=== PATIENT | female | born 1935 | race Caucasian/White ===

== ENCOUNTER 2018-09-15 20:14 | Observation (INO) | payer MEDICARE, BC ==
[~2018-09-15] VITALS: Ht 160 cm; Wt 57.2 kg
[2018-09-15 11:30] VITALS: BP 153/75
--- NOTE | 2018-09-15 20:27 | NUR ---
Pt taken to CT from triage. Daughter, Wes [phone] (cell) and Destinee call ([phone]) at bedside.
--- NOTE | 2018-09-15 20:30 | NUR ---
barbara stroke nurse at bedside. 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
--- NOTE | 2018-09-15 20:30 | NUR ---
STROKE NURSE, IRMA, REQUESTING TO POSTPONE CXR AND EKG TO PRIORITIZE STROKE EVAL AND TELE NEURO.
[2018-09-15] MEDS ORDERED: LEVE750T (20:51)
[2018-09-15] MEDS ORDERED: ROSU40TA21 (20:51)
[2018-09-15 20:55] LABS: BASOPHILS % (AUTO) 0.3 % (0-1); EOSINOPHILS % (AUTO) 0.2 % (0-6); HEMATOCRIT 42.1 % (35.0-45.0); HEMOGLOBIN 14.5 g/dl (12.0-16.0); LYMPHOCYTES # (AUTO) 1.5 X10'3 (1.1-4.8); LYMPHOCYTES % (AUTO) 11.6 % (21-51); MEAN CORPUSCULAR HEMOGLOBIN 31.3 PG (27.0-31.0); MEAN CORPUSCULAR HGB CONC 34.4 g/dL (33.0-36.5); MEAN CORPUSCULAR VOLUME 91.1 FL (78-98); MEAN PLATELET VOLUME 8.7 FL (7.4-10.4); MONOCYTES # (AUTO) 1.2 X10'3 (0-0.9); MONOCYTES % (AUTO) 8.7 % (2-12); NEUTROPHILS # (AUTO) 10.5 X10'3 (1.8-7.7); NEUTROPHILS % (AUTO) 79.2 % (42-75); PLATELET COUNT 167 X10'3 (140-440); RED BLOOD COUNT 4.62 X10'6 (4.20-5.60); RED CELL DISTRIBUTION WIDTH 14.1 % (11.5-14.5); WHITE BLOOD COUNT 13.3 X10'3 (4.5-11.0)
[2018-09-15] MEDS ORDERED: VITC500T PO (20:55)
[2018-09-15] MEDS ORDERED: CYAN-19 PO (20:55)
[2018-09-15] MEDS ORDERED: CHRO400T10 (20:55)
[2018-09-15] MEDS ORDERED: CHOL10002 PO (20:55)
[2018-09-15] MEDS ORDERED: FOLI0.4T2 PO (20:55)
[2018-09-15] MEDS ORDERED: PYRI50TA13 PO (20:55)
[2018-09-15] MEDS ORDERED: IODI150T (20:55)
--- NOTE | 2018-09-15 20:59 | NUR ---
soc tele neuro consult in progress now.
[2018-09-15 21:05] LABS: ALANINE AMINOTRANSFERASE 26 U/L (12-78); ALBUMIN 3.6 G/DL (3.4-5.0); ALBUMIN/GLOBULIN RATIO 0.9 (1.1-1.5); ALKALINE PHOSPHATASE 91 IU/L (46-116); ANION GAP 10 (8-16); ASPARTATE AMINO TRANSFERASE 21 U/L (10-37); BILIRUBIN,TOTAL 0.4 MG/DL (0.1-1.0); BLOOD UREA NITROGEN 26 MG/DL (7-18); BUN/CREATININE RATIO 22.4 (6.6-38.0); CALCIUM 8.9 MG/DL (8.5-10.1); CHLORIDE 102 MMOL/L (99-107); CREATININE 1.16 MG/DL (0.40-0.90); GLUCOSE 156 MG/DL (70-104); POTASSIUM 3.9 MMOL/L (3.5-5.1); SODIUM 137 MMOL/L (135-145); TOTAL PROTEIN 7.4 G/DL (6.4-8.2); eGFR 45 ML/MIN
[2018-09-15 21:08] LABS: TROPONIN I < 0.04 NG/ML (0.0-0.05)
[2018-09-15 21:10] LABS: PARTIAL THROMBOPLASTIN TIME 27 SECONDS (22-32)
[2018-09-15] MEDS ORDERED: normal saline 1000ml 1,000 ML IV ONE (21:15)
[2018-09-15] MEDS ORDERED: levetiracetam inj 1,000 MG in normal saline 100ml IV soln 90 ML IV ONE (21:20)
--- NOTE | 2018-09-15 22:05 | NUR ---
STROKE RN GAVE ME REPORT AND IS NOT GONE. SHE REPORTS THE TELE NEURO MD DOES NOT THINK THIS IS A STROKE AND IS A SIMILAR EVENT HER PAST SEIZURE, THE DAUGHTER SUSPECTED. FAMILY REMAINS AT BEDSIDE. PT TO BE ADMITTED AWAITING HOSPITALIST. NURSING SAS ADMINISTRATOR IN TO CHECK ON PT AND FAMILY. CURRENT VSS. KEPPRA IVPB INFUSING AND 1 LITER NS BOLUS INFUSING.
[2018-09-15] MEDS ORDERED: potassium Cl 20 mEq SR tablet PO PRN (22:20)
[2018-09-15] MEDS ORDERED: ondansetron/PF 4mg/2ml inj IV PRN (22:20)
[2018-09-15] MEDS ORDERED: magnesium Cl slow-release 64mg tablet PO PRN (22:20)
[2018-09-15] MEDS ORDERED: acetaminophen 325mg tablet PO PRN (22:20)
[2018-09-15] MEDS ORDERED: docusate sod 100mg capsule PO PRN (22:20)
[2018-09-15] MEDS ORDERED: magnesium 4gm in 100ml NS 100 ML IV PRN (22:20)
[2018-09-15] MEDS ORDERED: potassium Cl 40MEQ/NS 500ml 500 ML IV PRN ×2 (22:20)
[2018-09-15] MEDS ORDERED: magnesium 2GM in 50ml NS 50 ML IV PRN (22:20)
[2018-09-15] MEDS ORDERED: mag hydrox/Alum hydrox/simeth 30ml oral suspension PO PRN (22:20)
--- NOTE | 2018-09-15 22:42 | NUR ---
dr. sood at bedside for admission. family remains at bedside
[2018-09-15 22:50] LABS: CLARITY,URINE CLOUDY (Clear); COLOR,URINE YELLOW (Yellow); GLUCOSE, URINE NEGATIVE (Neg); KETONES,URINE NEGATIVE (Neg); LEUKOCYTE ESTERASE ,URINE LARGE (Neg); NITRITES, URINE POSITIVE (Neg); OCCULT BLOOD,URINE MODERATE (Neg); PROTEIN,URINE 100 mg/dl (Neg); UROBILINOGEN,URINE 0.2 E.U/dL (0.2-1.0)
[2018-09-15 23:01] LABS: UA COLLECTION TYPE CLN CATCH MIDSTREAM
[2018-09-15 23:02] LABS: WBC,URINE TNTC /HPF (0-4)
[2018-09-15 23:03] LABS: BACTERIA,URINE FEW /HPF (Neg); RBC,URINE 0-2 /HPF (0-2); SQUAMOUS EPITHELIAL CELL,UR FEW /LPF (FEW)
[2018-09-15 23:30] VITALS: BP 153/75
[2018-09-16] MEDS: CefTRIAXone/D5W-Rocephin 1gm 50 ML IV SCH ×2 (00:10→08:44)
[2018-09-16 02:00] VITALS: BP 130/59
[2018-09-16 04:42] LABS: BASOPHILS % (AUTO) 0.3 % (0-1); EOSINOPHILS % (AUTO) 0.5 % (0-6); HEMATOCRIT 39.4 % (35.0-45.0); HEMOGLOBIN 13.3 g/dl (12.0-16.0); LYMPHOCYTES # (AUTO) 2.3 X10'3 (1.1-4.8); LYMPHOCYTES % (AUTO) 24.9 % (21-51); MEAN CORPUSCULAR HEMOGLOBIN 30.7 PG (27.0-31.0); MEAN CORPUSCULAR HGB CONC 33.8 g/dL (33.0-36.5); MEAN CORPUSCULAR VOLUME 90.7 FL (78-98); MEAN PLATELET VOLUME 8.8 FL (7.4-10.4); NEUTROPHILS # (AUTO) 5.8 X10'3 (1.8-7.7); NEUTROPHILS % (AUTO) 63.3 % (42-75); PLATELET COUNT 142 X10'3 (140-440); RED BLOOD COUNT 4.34 X10'6 (4.20-5.60); WHITE BLOOD COUNT 9.1 X10'3 (4.5-11.0)
[2018-09-16 04:58] LABS: ALANINE AMINOTRANSFERASE 21 U/L (12-78); ALBUMIN/GLOBULIN RATIO 0.9 (1.1-1.5); ALKALINE PHOSPHATASE 69 IU/L (46-116); ANION GAP 6 (8-16); ASPARTATE AMINO TRANSFERASE 15 U/L (10-37); BILIRUBIN,TOTAL 0.3 MG/DL (0.1-1.0); BLOOD UREA NITROGEN 18 MG/DL (7-18); BUN/CREATININE RATIO 22.5 (6.6-38.0); CALCIUM 8.5 MG/DL (8.5-10.1); CHLORIDE 110 MMOL/L (99-107); CHOL/HDL RATIO 2.4 (0.00-4.99); CHOLESTEROL 139 MG/DL (0-200); GLUCOSE 101 MG/DL (70-104); HDL CHOLESTEROL 57 MG/DL (35-60); LDL CHOLESTEROL 69 MG/DL (50-100); MAGNESIUM 2.1 MG/DL (1.5-2.4); POTASSIUM 3.4 MMOL/L (3.5-5.1); SODIUM 142 MMOL/L (135-145); TOTAL CARBON DIOXIDE 25.8 MMOL/L (24-32); TOTAL PROTEIN 6.4 G/DL (6.4-8.2); TRIGLYCERIDES 97 MG/DL (20-135); eGFR 69 ML/MIN
--- NOTE | 2018-09-16 05:26 | NUR ---
Patient in room ORTHO 4009B. I have received report from JOVANNA Salazar and had the opportunity to ask questions and assume patient care. Addendum: 09/16/18 at 0530 by Rica Hill RN note: report was received on 2090 on 09/15/2018
[2018-09-16 06:00] VITALS: BP 133/67
--- NOTE | 2018-09-16 06:00 | NUR ---
Patient in room ORTHO 4009. I have received report from Rica NUGENT and had the opportunity to ask questions and assume patient care.
--- NOTE | 2018-09-16 06:07 | NUR ---
Problems reprioritized. Patient report given, questions answered & plan of care reviewed with JOVANNA Barclay.
[2018-09-16] MEDS ORDERED: enoxaparin 40mg/0.4ml syringe SQ SCH (08:00)
[2018-09-16] MEDS ORDERED: atorvastatin 20mg tablet PO SCH (08:00)
[2018-09-16] MEDS ORDERED: ascorbic acid 500mg tablet PO SCH (08:00)
[2018-09-16] MEDS ORDERED: K and/or MAG REPLACEMENT MC SCH (08:00)
[2018-09-16] MEDS ORDERED: levetiracetam 250mg tablet PO SCH (08:00)
[2018-09-16] MEDS: potassium Cl 20 mEq SR tablet PO PRN ×2 (08:38→12:14)
[2018-09-16 10:00] VITALS: BP 169/72
[2018-09-16] MEDS ORDERED: CIPR250T4 PO (10:54)
[2018-09-16] MEDS ORDERED: LEVE250T PO (10:54)
--- NOTE | 2018-09-16 13:25 | NUR ---
Patient stable for for discharge home today. All D/C instructions given to patient and daughter and all question answered. IV rebecca. Delio Bedside Delivered medications.
== END 2018-09-16 12:40 | disposition home or self-care (01) ==
LOC: ER 20:15 → ORTHO 4S 23:53 → CMPBEDREQ 23:56
PROVIDERS: ADMIT Family Medicine; ATTEND Internal Medicine
DX: G83.84 Todd's paralysis (postepileptic) (principal); R41.4 Neurologic neglect syndrome; N28.9 Disorder of kidney and ureter, unspecified; N39.0 Urinary tract infection, site not specified; E78.5 Hyperlipidemia, unspecified; E78.00 Pure hypercholesterolemia, unspecified; Z86.73 Personal history of transient ischemic attack (TIA), and cerebral infarction without residual deficits; Z86.69 Personal history of other diseases of the nervous system and sense organs
CPT/HCPCS: 36415; 70450; 71045; 80053; 80061; 81001; 82948; 83735; 84484; 85025; 85610; 85730; 87070; 87077; 87088; 87186; 93005; 96365; 96372; 97116; 97161; 97535; 99284; G0378; J0696; J1953; J1650; J7030

== ENCOUNTER 2025-02-24 04:43 | Emergency (ER) | payer MEDICARE, BC ==
[~2025-02-24] VITALS: Ht 160 cm; Wt 64.4 kg
[~2025-02-24 04:43] MED LIST: CHOL10002 PO; CHRO400T10; CYAN-104 PO; FOLI0.4T6 PO; IODI150T; LEVE250T PO; PYRI-3 PO; ROSU40TA89; VITC500T PO
--- NOTE | 2025-02-24 04:49 | Physician Documentation ---
History of Present Illness General Stated Complaint: SEE CHIEF COMPLAINT Kristin RUSH Time Seen by MD: 04:47 Primary Medical Doctor: [facility]; Herve FLORES PCP History of Present Illness Initial Comments Patient is a an 89-year-old female states that she was walking a proximally 30 minutes prior to arrival in the emergency room with her walker and she fell she states she had difficulty with a walker and it ended up on top of her. Patient states she hit the left side of her body she is complaining some slight left chest pain in the left hip pain. Patient was able to ambulate at the scene the patient is complaining of mild pain she states it is a 1/10. In the left hip. She does not require or want anything for pain at this time. Patient denies a head strike she denies any neck pain. The patient is not on any blood thinners Medication Reconciliation Allergies: Coded Allergies: Bacitracin Zinc (Verified Allergy, Unknown, 08/24/15) bacitracin (Verified Allergy, Unknown, 08/24/15) gramicidin D (Verified Allergy, Unknown, 08/24/15) neomycin sulfate (Verified Allergy, Unknown, 08/24/15) phenytoin sodium (Verified Allergy, Unknown, 08/24/15) polymyxin B (Verified Allergy, Unknown, 08/24/15) polymyxin B sulfate (Verified Allergy, Unknown, 08/24/15) Scheduled Ascorbic Acid* (Vitamin C*), 1,000 MG PO BID, (Reported) Cholecalciferol (Vitamin D3) (Vitamin D3), Unknown Dose PO DAILY, (Reported) Cyanocobalamin (Vitamin B-12), Unknown Dose PO DAILY, (Reported) Folic Acid* (Folic Acid*), Unknown Dose PO DAILY, (Reported) Levetiracetam (Levetiracetam), 1,000 MG PO BID Pyridoxine Hcl (Vitamin B-6), Unknown Dose PO DAILY, (Reported) Rosuvastatin Calcium (Rosuvastatin Calcium), 1 TAB DAILY, (Reported) Miscellaneous Medications Chromium Amino Acid Chelate (Chromium), Unknown Dose, (Reported) Iodine (Kelp), Unknown Dose, (Reported) Past Medical History Past Medical History: CVA/TIA/Stroke, Seizures, High Cholesterol, Eczema Past Surgical History: abdominal surgery, brain surgery Smoking: Non-Smoker Alcohol Use: None Drug Use: none Review of Systems All Other Systems at this time: Reviewed and Negative Physical Exam Physical Exam Physical Exam VITALS: Reviewed and as above. GENERAL: Alert, no apparent distress. HEENT: Normocephalic, atraumatic, PERRL, EOMI, dry mucosa, no erythema RESPIRATORY: Lungs clear, normal breath sounds, no respiratory distress. CHEST: No accessory muscle use, no retractions slight light left-sided chest wall tenderness CV: Regular rate, rhythm, no edema, 3/6 systolic murmur best heard over the left upper sternal border, No: JVD GI: Soft, non-tender, bowels sounds present, no rebound, guarding, or rigidity BACK: No CVA tenderness, or swelling MUSCULOSKELETAL: No deformities, no edema slight pain over the left hip full range of motion without pain of the left hip SKIN: Warm and dry, no rash NEURO: Oriented x4, No motor or sensory deficit PSYCH: Normal mood and affect, no agitation Progress Results/Orders Results/Orders Orders - CORRY COULTER MD Hip Unilateral 2 Views (02/24/25 ) Uni Ribs With Pa Chest (02/24/25 04:50) Completed Orders - CORRY COULTER MD Hip Unilateral 2 Views (02/24/25 ) Uni Ribs With Pa Chest (02/24/25 04:50) Vital Signs 02/24/25 02/24/25 04:58 05:58 Temp 97.6 97.6 Pulse 71 69 Resp 18 18 B/P (MAP) 124/68 132/75 Pulse Ox 97 99 O2 Flow Rate 0 EKG/XRAY/CT/US/VASC/MRI Bone/Soft Tissue X-Ray (Spine) : Additional Comment Patient: BRIAN PEREZ Medical Record: [id number] : 1935, Age: 89 Sex: Female Location: ER Patient Status: REG ER Service Date/Time: 02/24/25/ Ordering Physician: CORRY COULTER MD Exam: HIP UNILATERAL 2 EWS PROCEDURE: Left hip radiographs. INDICATION: fall LT HIP PAIN TECHNIQUE: Frontal view of the pelvis, frontal and lateral views of the left hip were obtained. COMPARISON: None FINDINGS: There is no evidence of acute fracture or dislocation. There is chronic appearing left superior and inferior pubic ramus fractures. No dislocation. Vascular calcifications noted IMPRESSION: 1. No acute osseous abnormality. 2. Chronic appearing left superior and inferior pubic ramus fractures. Electronically Signed by:NOLAN SCHMIDT MD Date & Time: 02/24/25525 Dictated by: NOLAN SCHMIDT MD Dictation date and time: 02/24/25525 Primary Care Provider: NO PRIMARY CARE PROVIDER cc: CORRY COULTER MD ~ Bone/Soft Tissue X-Ray (Ext.) : Additional Comment Patient: BRIAN PEREZ Medical Record: [id number] [facility] 1935, Age: 89 Sex: Female Location: ER Patient Status: [facility] ER Service Date/Time: 02/24/25449 Ordering Physician: CORRY COULTER MD Exam: UNI RIBS WITH PA CHEST FRONTAL CHEST AND left RIB RADIOGRAPHS HISTORY: fall LT RIB PAIN TECHNIQUE: Frontal radiographs of the chest and multiple oblique views of the left ribs were obtained. COMPARISON: None. FINDINGS: The trachea is midline. The cardiac silhouette and mediastinum are within normal limits. No pneumothorax, pleural effusions, or consolidations. No evidence of left rib fracture. There is a calcified mass in the left upper quadrant measuring 3.4 cm. Impression: 1. No evidence of left rib fracture. 2. No acute cardiopulmonary process. 3. Calcified mass in the left upper quadrant measuring 3.[address] of the abdomen pelvis may be obtained for further evaluation. Electronically Signed by:NOLAN SCHMIDT MD Date & Time: 02/24/25527 Dictated by: NOLAN SCHMIDT MD Dictation date and time: 02/24/25527 Primary Care Provider: NO PRIMARY CARE PROVIDER cc: CORRY COULTER MD ~ Medical Decision Making Additional information obtaine: old records Findings Patient with a ground level fall patient has a benign exam. The patient had some slight tenderness over her lower left hip and also some slight tenderness over the left chest wall plain film imaging of the hip did not demonstrate any acute pathology or fracture and the chest x-ray is unremarkable patient's lungs are clear she is nontoxic and otherwise well-appearing the patient's pulse oximetry was interpreted as normal all of her images were reviewed. The patient's hip demonstrated normal bony alignment no soft tissue swelling was appreciated no dislocation I interpreted the x-ray as being a normal x-ray I have also reviewed the radiologist's interpretation. The patient will be discharged Differential Diagnosis Hip fracture hip contusion Departure Time of Disposition: 05:45 Disposition: 01 HOME / SELF CARE / HOMELESS Impression: Primary Impression: Fall Qualified Codes: W19.XXXA - Unspecified fall, initial encounter Additional Impression: Hip pain Qualified Codes: M25.552 - Pain in left hip Discharge Instructions: Fall Prevention in the Home, Adult, [id number] Referrals: NO PRIMARY CARE PROVIDER (PCP) Signature Scribe Signature: No scribe Attestation: The note accurately reflects work and decisions made by me.Corry Coulter MD 02/25/25 04:55 CORRY COULTER MD Feb 24, 2025 04:49
--- NOTE | 2025-02-24 05:29 | RADIOLOGY REPORT ---
PROCEDURE: Left hip radiographs. INDICATION: fall LT HIP PAIN TECHNIQUE: Frontal view of the pelvis, frontal and lateral views of the left hip were obtained. COMPARISON: None FINDINGS: There is no evidence of acute fracture or dislocation. There is chronic appearing left superior and inferior pubic ramus fractures. No dislocation. Vascular calcifications noted IMPRESSION: 1. No acute osseous abnormality. 2. Chronic appearing left superior and inferior pubic ramus fractures.
--- NOTE | 2025-02-24 05:31 | RADIOLOGY REPORT ---
FRONTAL CHEST AND left RIB RADIOGRAPHS HISTORY: fall LT RIB PAIN TECHNIQUE: Frontal radiographs of the chest and multiple oblique views of the left ribs were obtained. COMPARISON: None. FINDINGS: The trachea is midline. The cardiac silhouette and mediastinum are within normal limits. No pneumothorax, pleural effusions, or consolidations. No evidence of left rib fracture. There is a calcified mass in the left upper quadrant measuring 3.4 cm. Impression: 1. No evidence of left rib fracture. 2. No acute cardiopulmonary process. 3. Calcified mass in the left upper quadrant measuring 3.[address] of the abdomen pelvis may be obtained for further evaluation.
[2025-02-24 05:58] VITALS: BP 132/75; PULSE 69; RESP 18; TEMP 97.6; O2SAT 99
== END 2025-02-24 06:09 | disposition home or self-care (01) ==
LOC: ER 04:43
DX: M25.552 Pain in left hip (principal); E78.00 Pure hypercholesterolemia, unspecified; Z86.73 Personal history of transient ischemic attack (TIA), and cerebral infarction without residual deficits; Z88.1 Allergy status to other antibiotic agents; Z88.8 Allergy status to other drugs, medicaments and biological substances; Z79.899 Other long term (current) drug therapy; W18.30XA Fall on same level, unspecified, initial encounter; Y93.01 Activity, walking, marching and hiking; Y92.89 Other specified places as the place of occurrence of the external cause; Y99.8 Other external cause status
CPT/HCPCS: 71101; 73502; 99284